=== PATIENT | female | born 1950 | race Caucasian/White ===

== ENCOUNTER 2018-04-03 10:37 | Emergency (ER) | payer MEDICARE, BC ==
[2018-04-03 10:59] VITALS: BP 142/76
--- NOTE | 2018-04-03 11:05 | UC ---
General HPI - HPI Summary HPI Summary: pt c/o a cough for the past 1.5-2 weeks. began with a sore throat prior to that which has resolved. over the past 4 days on average of twice daily, pt will raise blood with her sputum. denies fever, sob, wheezing and chest pain. no hx TB. 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 can not recall every having TB testing. - History of Current Complaint Chief Complaint: UCRespiratory Stated Complaint: COUGH W/BLOOD Time Seen by Provider: 04/03/18 10:52 Hx Obtained From: Patient Onset/Duration: Gradual Onset Pain Intensity: 0 Associated Signs & Symptoms: Positive: Cough, Hemoptysis, Other - fatigue. Negative: Chest Pain, Fever, SOB, Wheezing - Allergy/Home Medications Allergies/Adverse Reactions: Allergies Allergy/AdvReac Type Severity Reaction Status Date / Time No Known Allergies Allergy Verified 04/03/18 10:52 Home Medications: Home Medications Alendronate Sodium [Fosamax-] 1 tab WEEKLY 04/03/18 [History Confirmed 04/03/18] Cholecalciferol TAB* [Vitamin D TAB*] 1 tab DAILY 04/03/18 [History Confirmed ] Escitalopram Oxalate [Lexapro 20 mg] 1 tab QAM 04/03/18 [History Confirmed 04/03] hydrOXYzine HCL TAB* [Atarax 25 MG TAB*] 1 tab BEDTIME 04/03/18 [History Confirmed 04/03/18] PMH/Surg Hx/FS Hx/Imm Hx - Additional Past Medical History Additional PMH: uterine CA, itchy skin, anxiety, osteoporosis - Surgical History Surgical History: Yes Surgery Procedure, Year, and Place: Hysterectomy - Social History Lives: With Family Alcohol Use: None Substance Use Type: None Smoking Status (MU): Never Smoked Tobacco - Immunization History Vaccination Up to Date: Yes Review of Systems All Other Systems Reviewed And Are Negative: Yes Constitutional: Positive: Fatigue Skin: Positive: Negative Eyes: Positive: Negative ENT: Positive: Negative Respiratory: Positive: Cough. Negative: Shortness Of Breath Cardiovascular: Negative: Chest Pain Gastrointestinal: Positive: Negative Genitourinary: Positive: Negative Motor: Positive: Negative Neurovascular: Positive: Negative Musculoskeletal: Positive: Negative Neurological: Positive: Negative Psychological: Positive: Negative Is Patient Immunocompromised?: No Physical Exam Triage Information Reviewed: Yes Appearance: Well-Appearing, Other: - Tissue at bedside has clear sputum with mix of pink to light red color. No clots. No cough or hemoptysis at time of exam. Vital Signs: Initial Vital Signs Temp 97.5 F 04/03/18 10:55 Pulse 78 04/03/18 10:55 Resp 16 04/03/18 10:55 BP 142/76 04/03/18 10:55 Pulse Ox 99 04/03/18 10:55 Vital Signs Reviewed: Yes Eyes: Positive: Conjunctiva Clear ENT: Positive: Pharynx normal, TMs normal. Negative: Nasal congestion, Nasal drainage Neck: Positive: Supple, Nontender, No Lymphadenopathy Respiratory: Positive: Lungs clear, Normal breath sounds, No respiratory distress Cardiovascular: Positive: RRR, No Murmur Abdomen Description: Positive: Nontender, No Organomegaly, Soft Bowel Sounds: Positive: Present Musculoskeletal: Positive: ROM Intact Neurological: Positive: Alert Psychological: Positive: Normal Response To Family, Age Appropriate Behavior Skin Exam: Normal Diagnostics - Radiology No standard instances Radiology Interpretation Completed By: Radiologist - IMPRESSION: Lung masses in the right upper lobe, right lower lobe and left upper lobe for which lung masses and possible metastatic disease should BE considered. Course/Dx - Course Course Of Treatment: RESULTS OF CXR RESULT D/W PT AND HER . NEED FOR F/U TOMORROW WAS STRESSED ALSO GO TO ER FOR ANY WORSENING. - Differential Dx - Multi-Symptom Differential Diagnoses: Other - bronchitis, pneumonia, TB,: however, given masses on cxr, CA is very possible - Diagnoses Provider Diagnosis: Cough with hemoptysis, Lung mass Discharge - Sign-Out/Discharge Documenting (check all that apply): Patient Departure All imaging exams completed and their final reports reviewed: Yes - Discharge Plan Condition: Stable Disposition: HOME Patient Education Materials: Hemoptysis (ED) Referrals: Haylie Banda MD [Primary Care Provider] - 1 Day Additional Instructions: DIAGNOSIS: HEMOPTYSIS, LUNG MASSES ON CXR. FOLLOW UP WITH YOUR PRIMARY CARE IN AM. GO TO ER FOR ANY WORSENING. TAKE THE DISC AND XRAY REPORT TO YOUR PRIMARY CARE FOLLOW UP VISIT. - Billing Disposition and Condition Condition: STABLE Disposition: Home
== END 2018-04-03 11:49 | disposition home or self-care (01) ==
LOC: UCCORT 10:37
DX: R04.2 Hemoptysis (principal); R91.8 Other nonspecific abnormal finding of lung field; Z85.42 Personal history of malignant neoplasm of other parts of uterus; L29.9 Pruritus, unspecified; F41.9 Anxiety disorder, unspecified; M81.0 Age-related osteoporosis without current pathological fracture
CPT/HCPCS: 71046; 99211; G0463